=== PATIENT | female | born 1940 | race Caucasian/White ===

== ENCOUNTER 2018-12-03 21:24 | Inpatient (IN) | payer MEDICAID, MEDICARE ==
[~2018-12-03] VITALS: Ht 147.3 cm; Wt 85.3 kg
[2018-12-03] MEDS ORDERED: NITROGLYCERIN 0.4 MG TAB.SUBL SL ONE (21:45)
[2018-12-03] MEDS ORDERED: ASPIRIN 325 MG TABLET PO ONE (21:45)
[2018-12-03 21:48] VITALS: BP_SYST 164
[2018-12-03 21:54] LABS: BASOPHILS # (AUTO) 0.1 K/uL (0.0-0.2); EOSINOPHILS # (AUTO) 0.2 K/uL (0.0-0.4); EOSINOPHILS % (AUTO) 2.8 % (0.0-4.0); HEMATOCRIT 36.4 % (36-48); LYMPHOCYTES # (AUTO) 1.9 K/uL (1.0-5.5); LYMPHOCYTES % (AUTO) 25.7 % (20.5-51.5); MEAN CORPUSCULAR HEMOGLOBIN 30 pg (27-31); MEAN CORPUSCULAR HGB CONC 33 % (32-36); MEAN CORPUSCULAR VOLUME 92 fL (79.0-98.0); MONOCYTES # (AUTO) 0.7 K/uL (0.0-1.0); MONOCYTES % (AUTO) 8.7 % (1.7-9.3); NEUTROPHILS # (AUTO) 4.6 K/uL (1.8-7.7); NEUTROPHILS % (AUTO) 61.8 % (40.0-70.0); PLATELET COUNT (AUTO) 216 K/uL (130-430); RED BLOOD CELL COUNT(AUTO) 3.95 MIL/uL (4.2-6.2); RED CELL DISTRIBUTION WIDTH 14.2 % (9.0-15.0); WHITE BLOOD COUNT (AUTO) 7.5 K/uL (4.8-10.8)
[2018-12-03 22:09] LABS: ANION GAP 6 (5-15); CHLORIDE 99 mmol/L (98-107); GLUCOSE 354 mg/dL (70-99); POTASSIUM 3.9 mmol/L (3.5-5.1); SODIUM SERUM 130 mmol/L (136-145); UREA NITROGEN, BLOOD 25 mg/dL (8-21)
[2018-12-03 22:12] LABS: PROTHROMBIN TIME 9.9 SECS (9.5-12.5)
[2018-12-03 22:14] LABS: ALANINE AMINOTRANSFERASE 23 U/L (12-78); ALBUMIN 2.9 g/dL (3.4-4.8); ASPARTATE AMINOTRANSFERASE 14 U/L (10-37); TOTAL BILIRUBIN 0.4 mg/dL (0.0-1.0)
[2018-12-03] MEDS ORDERED: MULT-1117 PO (22:51)
[2018-12-03] MEDS ORDERED: LOSA25TA3 PO (22:51)
[2018-12-03] MEDS ORDERED: SITA100T11 PO (22:51)
[2018-12-03] MEDS ORDERED: PIOG30TA71 PO (22:51)
[2018-12-03] MEDS ORDERED: METF1000 PO (22:51)
[2018-12-03] MEDS ORDERED: NAPR-688 PO (22:52)
[2018-12-03] MEDS ORDERED: IOHEXOL 350 mgI/mL, 150 ML INFUS..BTL IV ONE (23:39)
[2018-12-04] MEDS ORDERED: MORPHINE 2 MG/ML INJ. SYRINGE IVP ONE (01:15)
[2018-12-04 01:55] VITALS: BP_SYST 159
[2018-12-04] MEDS ORDERED: MAGNESIUM SULFATE 50 ML IV PRN (06:30)
[2018-12-04] MEDS ORDERED: MUPIROCIN 2% TOPICAL OINTMENT 22 GM NS PRN (06:30)
[2018-12-04] MEDS ORDERED: MORPHINE 2 MG/ML INJ. SYRINGE IVP PRN ×2 (06:30)
[2018-12-04] MEDS ORDERED: ACETAMINOPHEN 325 MG TABLET PO PRN (06:30)
[2018-12-04] MEDS ORDERED: DOCUSATE SODIUM 100 MG CAPSULE PO PRN (06:30)
[2018-12-04] MEDS ORDERED: LORazepam 2 MG/ML VIAL IVP PRN (06:30)
[2018-12-04] MEDS ORDERED: POTASSIUM CHLORIDE 20 MEQ TAB.PRT.SR PO PRN (06:30)
[2018-12-04] MEDS ORDERED: ZOLPIDEM TARTRATE 5 MG TABLET PO PRN (06:30)
[2018-12-04] MEDS ORDERED: ONDANSETRON HCL 4 MG/2 ML VIAL IVP PRN (06:30)
[2018-12-04] MEDS: INSULIN NPH/REGULAR 70-30, 100 UNITS/ML, 10 ML VIAL SUBCUT SCH ×3 (07:00→17:15)
[2018-12-04] MEDS: INSULIN REGULAR, HUMAN 100 UNITS/ML, 10 ML VIAL (humuLIN R) SUBCUT PRN ×4 (07:02→20:04)
[2018-12-04] MEDS: metFORMIN HCL 500 MG TABLET PO SCH ×2 (08:00→17:15)
[2018-12-04] MEDS: MULTIVITAMINS TAB 1 TABLET PO SCH (08:09)
[2018-12-04] MEDS: NACL 0.9% 1,000 ML IV SCH ×2 (08:09→20:05)
[2018-12-04] MEDS: LOSARTAN POTASSIUM 25 MG TABLET PO SCH (08:11)
[2018-12-04] MEDS ORDERED: ENOXAPARIN SODIUM 40 MG/0.4 ML SYRINGE SUBCUT SCH (09:00)
[2018-12-04 09:12] LABS: BILIRUBIN,URINE NEGATIVE (NEGATIVE); COLOR,URINE YELLOW (YELLOW); GLUCOSE,URINE 3+ (NEGATIVE); KETONES,URINE NEGATIVE (NEGATIVE); LEUKOCYTE ESTERASE ,URINE NEGATIVE (NEGATIVE); NITRITE, URINE NEGATIVE (NEGATIVE); PROTEIN URINE NEGATIVE (NEGATIVE); UROBILINOGEN,URINE 0.2 (0.2-1.0)
[2018-12-04 09:17] LABS: BLOOD, URINE TRACE (NEGATIVE); CLARITY/URINE HAZY (CLEAR)
[2018-12-04 09:29] LABS: BACTERIA,URINE MODERATE /HPF (None Seen); RBC,URINE 0-3 /HPF (0-3)
[2018-12-04 09:30] LABS: MUCUS,URINE 1+ /LPF (None Seen)
[2018-12-04 09:50] LABS: ANION GAP 6 (5-15); CHLORIDE 99 mmol/L (98-107); CREATININE 0.83 mg/dL (0.55-1.30); GLUCOSE 387 mg/dL (70-99); SODIUM SERUM 132 mmol/L (136-145); UREA NITROGEN, BLOOD 16 mg/dL (8-21)
[2018-12-04 11:31] VITALS: BP_SYST 142
[2018-12-04 15:57] VITALS: BP_SYST 146
[2018-12-04] MEDS: cefTRIAXone 1 GM in D5W 50 ML IV SCH (16:11)
[2018-12-04 20:00] VITALS: BP_SYST 157
[2018-12-05] VITALS: BP_SYST 148
[2018-12-05] MEDS: INSULIN REGULAR, HUMAN 100 UNITS/ML, 10 ML VIAL (humuLIN R) SUBCUT PRN (06:06)
[2018-12-05] MEDS: INSULIN NPH/REGULAR 70-30, 100 UNITS/ML, 10 ML VIAL SUBCUT SCH (06:08)
[2018-12-05 06:10] LABS: BASOPHILS % (AUTO) 0.5 % (0.0-2.0); EOSINOPHILS # (AUTO) 0.2 K/uL (0.0-0.4); EOSINOPHILS % (AUTO) 3.3 % (0.0-4.0); HEMATOCRIT 35.9 % (36-48); HEMOGLOBIN 11.9 g/dL (12.0-16.0); LYMPHOCYTES # (AUTO) 1.8 K/uL (1.0-5.5); LYMPHOCYTES % (AUTO) 27.2 % (20.5-51.5); MEAN CORPUSCULAR HEMOGLOBIN 31 pg (27-31); MEAN CORPUSCULAR HGB CONC 33 % (32-36); MEAN CORPUSCULAR VOLUME 92 fL (79.0-98.0); MONOCYTES # (AUTO) 0.5 K/uL (0.0-1.0); MONOCYTES % (AUTO) 7.9 % (1.7-9.3); NEUTROPHILS # (AUTO) 4.1 K/uL (1.8-7.7); NEUTROPHILS % (AUTO) 61.1 % (40.0-70.0); PLATELET COUNT (AUTO) 237 K/uL (130-430); RED BLOOD CELL COUNT(AUTO) 3.89 MIL/uL (4.2-6.2); RED CELL DISTRIBUTION WIDTH 14.2 % (9.0-15.0); WHITE BLOOD COUNT (AUTO) 6.8 K/uL (4.8-10.8)
[2018-12-05 06:42] LABS: THYROID STIMULATING HORMONE 3.49 uIu/mL (0.34-4.82)
[2018-12-05 07:29] VITALS: BP_SYST 165
[2018-12-05] MEDS: metFORMIN HCL 500 MG TABLET PO SCH (08:00)
[2018-12-05 08:13] LABS: ANION GAP 11 (5-15); CALCIUM 8.4 mg/dL (8.4-11.0); CHLORIDE 103 mmol/L (98-107); CREATININE 0.71 mg/dL (0.55-1.30); GLUCOSE 198 mg/dL (70-99); POTASSIUM 3.4 mmol/L (3.5-5.1); SODIUM SERUM 138 mmol/L (136-145); UREA NITROGEN, BLOOD 14 mg/dL (8-21)
[2018-12-05] MEDS: MULTIVITAMINS TAB 1 TABLET PO SCH (08:15)
[2018-12-05] MEDS: LOSARTAN POTASSIUM 25 MG TABLET PO SCH (08:16)
[2018-12-05] MEDS: cefTRIAXone 1 GM in D5W 50 ML IV SCH (09:00)
[2018-12-05 10:41] VITALS: BP_SYST 150
[2018-12-05 11:24] VITALS: BP_SYST 150
== END 2018-12-05 12:05 | disposition home or self-care (01) | DRG 203 ==
LOC: SED 21:24 → STU 12-04 01:16
PROVIDERS: ADMIT General Practice; ATTEND General Practice
DX: M94.0 Chondrocostal junction syndrome [Tietze] (principal); E44.0 Moderate protein-calorie malnutrition; E11.65 Type 2 diabetes mellitus with hyperglycemia; E87.1 Hypo-osmolality and hyponatremia; E66.9 Obesity, unspecified; E78.5 Hyperlipidemia, unspecified; F03.90 Unspecified dementia, unspecified severity, without behavioral disturbance, psychotic disturbance, mood disturbance, and anxiety; I10 Essential (primary) hypertension; G89.29 Other chronic pain; N39.0 Urinary tract infection, site not specified; M19.90 Unspecified osteoarthritis, unspecified site; Z79.899 Other long term (current) drug therapy; Z68.39 Body mass index [BMI] 39.0-39.9, adult; I25.2 Old myocardial infarction; Z79.82 Long term (current) use of aspirin; Z87.891 Personal history of nicotine dependence
CPT/HCPCS: 36415; 71045; 71275; 80048; 80053; 80061; 81000-TC; 82550-TC; 82962; 83036; 83735-TC; 83880; 84443-TC; 84484; 85025; 85379; 85610-TC; 85730-TC; 93005; 93306; 99285; G0378; J0696; J1650; J1815; J7030; J7060; Q9967